=== PATIENT | female | born 1975 | race Native Hawaiian/Other Pacific Islander ===

== ENCOUNTER 2022-01-11 11:31 | Emergency (ER) | payer OTHER ==
[~2022-01-11] VITALS: Ht 180.3 cm; Wt 79.4 kg
[2022-01-11 11:40] VITALS: TEMP 97.3
[2022-01-11 12:51] LABS: PLATELET COUNT 262 K/uL (152-353)
[2022-01-11 14:00] VITALS: BP 139/79
== END 2022-01-11 14:17 | disposition home or self-care (01) ==
LOC: ED 11:31
PROVIDERS: Emergency Medicine Emergency Medical Services
DX: K21.9 Gastro-esophageal reflux disease without esophagitis (principal); R93.5 Abnormal findings on diagnostic imaging of other abdominal regions, including retroperitoneum
CPT/HCPCS: 36415; 80053; 80307; 81002; 81025; 82150; 83690; 85027; 96360; 96374; 99284; J3490